=== PATIENT | female | born 1980 | race Caucasian/White ===

== ENCOUNTER 2017-06-01 19:38 | Emergency (ER) | payer MEDICAID ==
--- NOTE | 2017-06-01 20:22 | ED Physician Chart ---
ED Chief Complaint/HPI - Patient Information Date Seen:: 06/01/17 Time Seen:: 20:00 Chief Complaint:: neck pain History of Present Illness:: Patient has a history of cervical herniated and bulging discs. 2 1/2 weeks ago she had cervical facet injections by her foxing painter. Since then she's had neck tightness and shoulder pain which radiates down both arms. No chills or fever. Allergies:: Allergies Allergy/AdvReac Type Severity Reaction Status Date / Time No Known Allergies Allergy Verified 06/01/17 19:50 Vitals:: Vital Signs - 8 hr 06/01/17 19:40 Temp 98.2 F HR 78 RR 18 BP 118/60 O2 Sat % 98 Historian:: Patient Review:: Nurse's Note Reviewed ED Review of Systems - Review of Systems General/Constitutional: No fever, No chills, No weight loss, No weakness, No diaphoresis, No edema, No loss of appetite Skin: No skin lesions, No rash, No bruising Head: No headache, No light-headedness Eyes: No loss of vision, No pain, No diplopia ENT: No earache, No nasal drainage, No sore throat, No tinnitus Neck: Neck pain, No swelling, No thyromegaly, No stiffness, No mass noted Cardio Vascular: No chest pain, No palpitations, No PND, No orthopnea, No edema Pulmonary: No SOB, No cough, No sputum, No wheezing GI: No nausea, No vomiting, No diarrhea, No pain, No melena, No hematochezia, No constipation, No hematemesis G/U: No dysuria, No frequency, No hematuria Musculoskeletal: No bone or joint pain, No back pain, No muscle pain Endocrine: No polyuria, No polydipsia Psychiatric: No prior psych history, No depression, No anxiety, No suicidal ideation Hematopoietic: No bruising, No lymphadenopathy Allergic/Immuno: No urticaria, No angioedema Neurological: No syncope, No focal symptoms, No weakness, No paresthesia, No headache, No seizure, No dizziness, No confusion, No vertigo ED Past Medical History - Past Medical History Past Medical History: Other (right eye blindness) Family History: None Social History: Smoker, No Alcohol, Other (smokes 3 cigarettes a day) Surgical History: other (unsuccessful corneal transplant right eye at age 4) Psychiatricy History: None Medication: None Family Medical History - Family Member Father Ethnicity: Living Status: Still Living Hx Family Cancer: Yes (LUNG) Hx Family Diabetes: Yes ED Physical Exam - Physical Examination General/Constitutional: Well-developed, well-nourished, Alert, No distress Head: Atraumatic Other Eyes comments:: Corneal opacity right eye Skin: Nl inspection, No rash, No skin lesions, No ecchymosis, Well hydrated, No lymphadenopathy ENMT: External ears, nose nl, TM canals nl, Nasal exam nl, Lips, teeth, gums nl , Oropharynx nl, Tonsils nl Neck: No JVD, No bruit, No mass, No stridor Other Neck comments:: Cervical spine tenderness without deformity; range of motion of the neck: 90 forward flexion; 60 extension, 60 right and 50 left rotation; 10 left and 30 right lateral flexion Respiratory: Nl effort/Exclusion, Clear to Auscultation, No Wheeze/Rhonchi/Rales Cardio Vascular: RRR, No murmur, gallop, rubs GI: No tenderness/rebounding/guarding, No McBurney tenderness : No CVA tenderness Extremities: Normal digits & nails Neuro/Psych: No focal deficits Other Neuro/Psych comments:: Strong equal hand grasp; deep tendon reflexes symmetrical: brachial 2 out of 4 ; radial 2 out of 4; patellar: 1 out of 4; Achilles 2 out of 4 Misc: Normal back, No paraspinal tenderness ED Assessment - Assessment General Assessment: The chance of a cervical epidural abscess seems slight because of the patient's chronic neck pain and history of herniated and bulging cervical disks. Patient did not see pain radiating from the Toradol intramuscularly. I however did not think it appropriate to either give parenteral narcotics or prescribe oral narcotics for subacute and chronic pain. If the patient's pain management doctor thinks it appropriate he can prescribe narcotic pain medication for the patient although he has not done so yet. ED Septic Shock - . Is Septic Shock (SBP<90, OR Lactate>4 mmol\L) present?: No - <6hrs of presentation: Vital Signs: Vital Signs - 8 hr 06/01/17 19:40 Temp 98.2 F HR 78 RR 18 BP 118/60 O2 Sat % 98 ED Reassessment (Disposition) - Diagnosis Diagnosis:: Cervical radiculopathy; acute exacerbation of chronic neck pain - Aftercare/Follow up Instructions Aftercare/Follow-Up Instructions:: Refer to Discharge Instructions - Patient Disposition Discharge/Transfer:: Home Condition at Disposition:: Stable ED Discharge Plan - Patient Disposition Instructions: Cervical Radiculopathy, [id number] Additional Instructions: FOLLOW UP WITH YOUR PAIN MANAGEMENT MD SCHEDULED OR SOONER IF NOT FEELING ANY BETTER. RETURN TO YOUR NEAREST ER IF CONDITION WORSENS.
== END 2017-06-01 20:40 | disposition home or self-care (01) ==
LOC: ER 19:38
DX: M54.12 Radiculopathy, cervical region (principal); G89.29 Other chronic pain; M54.2 Cervicalgia; F17.210 Nicotine dependence, cigarettes, uncomplicated
CPT/HCPCS: 99283; 96372; J1885; Z7502